=== PATIENT | female | born 1980 | race African-American/Black ===

== ENCOUNTER 2018-02-09 17:07 | Emergency (ER) | payer OTHER ==
[2018-02-09 17:11] VITALS: BP 133/75
--- NOTE | 2018-02-09 17:16 | ED ---
Throat Pain/Nasal Congestion - HPI Summary HPI Summary: 38-year-old female presents with foreign body in left ea today. States got ear bud stuck in her ear. She has not attempted to remove it. No other complaints. She states she has decreased hearing due to the ear bud. No sinus congestion. No fevers. - History of Current Complaint Chief Complaint: EDEarPain Time Seen by Provider: 02/09/18 17:13 - Allergies/Home Medications Allergies/Adverse Reactions: Allergies Allergy/AdvReac Type Severity Reaction Status Date / Time MS Penicillins [Penicillins] Allergy Intermediate Hives Verified 06/01/13 15:53 PMH/Surg Hx/FS Hx/Imm Hx Endocrine/Hematology History: Denies: Hx Anticoagulant Therapy Respiratory History: Reports: Hx Asthma - DX'D 5 MOS AGO - Surgical History Surgery Procedure, Year, and Place: tubal ligation. Infectious Disease History: No Infectious Disease History: Denies: Traveled Outside the [place] in Last 30 Days - Family History Known Family History: Positive: Hypertension - Social History Alcohol Use: Rare Substance Use Type: Reports: None Hx Tobacco Use: Yes Smoking Status (MU): Never Smoked Tobacco Review of Systems Negative: Fever Positive: Ear Ache - left ear foreign body Negative: Chest Pain Negative: Shortness Of Breath All Other Systems Reviewed And Are Negative: Yes Physical Exam Triage Information Reviewed: Yes Vital Signs On Initial Exam: Initial Vitals Temp Pulse Resp BP Pulse Ox 98 F 80 16 133/75 99 02/09/18 17:10 02/09/18 17:10 02/09/18 17:10 02/09/18 17:10 02/09/18 17:10 Vital Signs Reviewed: Yes Appearance: Positive: Well-Appearing Skin: Positive: Warm, Dry Head/Face: Positive: Normal Head/Face Inspection Eyes: Positive: Normal, EOMI, FABRIZIO, Conjunctiva Clear ENT: Positive: Pharynx normal, TMs normal - after removal, Other - ear bud in left ear Respiratory/Lung Sounds: Positive: Clear to Auscultation, Breath Sounds Present Cardiovascular: Positive: Normal, RRR Musculoskeletal: Positive: Normal Neurological: Positive: Normal Psychiatric: Positive: Normal Procedures - Procedure Summary Procedure Summary: removed left ear bud left ear with tweezers, normal TM afterwards Diagnostics - Vital Signs Vital Signs Temp Pulse Resp BP Pulse Ox 02/09/18 17:10 98 F 80 16 133/75 99 - Laboratory Lab Statement: Any lab studies that have been ordered have been reviewed, and results considered in the medical decision making process. EENT Course/Dx - Course Course Of Treatment: 38-year-old female presents with foreign body in left ea today. States got ear bud stuck in her ear. She has not attempted to remove it. No other complaints. She states she has decreased hearing due to the ear bud. No sinus congestion. No fevers. On exam has ear bud in left ear. removed with tweezers. Patient understands and agrees with plan. - Differential Diagnoses Differential Diagnoses: Foreign Body, Otitis Externa, Otitis Media - Diagnoses Provider Diagnoses: Foreign body in left ear Discharge - Sign-Out/Discharge Documenting (check all that apply): Patient Departure - Discharge Plan Condition: Good Disposition: HOME Patient Education Materials: Ear Foreign Body (ED) Referrals: No Primary Care Phys,NOPCP [Primary Care Provider] - Additional Instructions: Return to ED if develop any new or worsening symptoms - Billing Disposition and Condition Condition: GOOD Disposition: Home
== END 2018-02-09 17:20 | disposition home or self-care (01) ==
LOC: ED 17:07
DX: T16.2XXA Foreign body in left ear, initial encounter (principal); X58.XXXA Exposure to other specified factors, initial encounter; Y93.9 Activity, unspecified; Y92.9 Unspecified place or not applicable; Z88.0 Allergy status to penicillin; Z82.49 Family history of ischemic heart disease and other diseases of the circulatory system
CPT/HCPCS: 69200; 99282

== ENCOUNTER 2018-10-12 21:53 | Emergency (ER) | payer OTHER ==
[2018-10-12 23:37] LABS: Influenza A Molecular NEGATIVE (Negative); Influenza B Molecular NEGATIVE (Negative)
[2018-10-13] MEDS ORDERED: Azithromycin TAB* 250 MG PO ONE (01:07)
[2018-10-13] MEDS ORDERED: Benzonatate CAP* 100 MG PO ONE (01:07)
--- NOTE | 2018-10-13 01:10 | ED ---
Respiratory - HPI Summary HPI Summary: Patient complains of nasal congestion, facial pressure, sore throat with cough, persistent cough, plugged ears 2 weeks. Denies fever, CHAPMAN, neck stiffness, N/V/ D, abdominal pain, change in urine, change in BM. Medical history is none. - History of Current Complaint Chief Complaint: EDGeneral Stated Complaint: COUGH,STUFFY NOSE PER PT Time Seen by Provider: 10/13/18 00:29 Hx Obtained From: Patient Onset/Duration: Gradual Onset, Lasting Days Timing: Constant Initial Severity: Moderate Current Severity: Moderate Pain Intensity: 5 Character: Cough (Productive) Sputum Amount: Moderate Sputum Color: White, Yellow Aggravating Factor(s): Nothing Alleviating Factor(s): Nothing Associated Signs and Symptoms: Nasal Congestion - Allergy/Home Medications Allergies/Adverse Reactions: Allergies Allergy/AdvReac Type Severity Reaction Status Date / Time Penicillins Allergy Hives Verified 10/12/18 21:58 PMH/Surg Hx/FS Hx/Imm Hx Endocrine/Hematology History: Denies: Hx Anticoagulant Therapy Cardiovascular History: Denies: Hx Pacemaker/ICD Respiratory History: Reports: Hx Asthma - DX'D 5 MOS AGO History: Denies: Hx Dialysis Sensory History: Denies: Hx Eye Prosthesis Opthamlomology History: Denies: Hx Legally Blind EENT History: Denies: Hx Deafness Neurological History: Denies: Hx Dementia Psychiatric History: Denies: Hx Autism - Surgical History Surgery Procedure, Year, and Place: tubal ligation. Infectious Disease History: No Infectious Disease History: Denies: Traveled Outside the [place] in Last 30 Days - Family History Known Family History: Positive: Hypertension - Social History Alcohol Use: Rare Substance Use Type: Reports: None Hx Tobacco Use: Yes Smoking Status (MU): Never Smoked Tobacco Review of Systems Constitutional: Negative Eyes: Negative Positive: Nasal Discharge Cardiovascular: Negative Positive: Cough Gastrointestinal: Negative Genitourinary: Negative Musculoskeletal: Negative Skin: Negative Neurological: Negative Psychological: Normal All Other Systems Reviewed And Are Negative: Yes Physical Exam Triage Information Reviewed: Yes Vital Signs On Initial Exam: Initial Vitals Temp Pulse Resp BP Pulse Ox 98.1 F 93 16 169/100 100 10/12/18 21:55 10/12/18 21:55 10/12/18 21:55 10/12/18 21:55 10/12/18 21:55 Vital Signs Reviewed: Yes Appearance: Positive: Well-Appearing Skin: Positive: Warm Head/Face: Positive: Normal Head/Face Inspection Eyes: Positive: Normal ENT: Positive: Normal ENT inspection Neck: Positive: Supple Respiratory/Lung Sounds: Positive: Clear to Auscultation Cardiovascular: Positive: Normal Abdomen Description: Positive: Nontender Musculoskeletal: Positive: Normal Neurological: Positive: Normal Psychiatric: Positive: Normal AVPU Assessment: Alert - [place] Coma Scale Best Eye Response: 4 - Spontaneous Best Motor Response: 6 - Obeys Commands Best Verbal Response: 5 - Oriented Coma Scale Total: 15 Diagnostics - Vital Signs Vital Signs Temp Pulse Resp BP Pulse Ox 10/12/18 23:57 98.1 F 88 16 155/89 96 10/12/18 21:55 98.1 F 93 16 169/100 100 - Laboratory Lab Results: Lab Results 10/12/18 10/13/18 Range/Units 23:25 00:54 Influenza A (Rapid) Negative (Negative) Influenza B (Rapid) Negative (Negative) Group A Strep Rapid Negative (Negative) Lab Statement: Any lab studies that have been ordered have been reviewed, and results considered in the medical decision making process. Disposition - Course Course Of Treatment: Patient complains of nasal congestion, facial pressure, sore throat with cough, persistent cough, plugged ears 2 weeks. Denies fever, CHAPMAN, neck stiffness, N/V/D, abdominal pain, change in urine, change in BM. Medical history is none. Physical exam unremarkable. Vital signs within normal limits. Flu negative. Diagnosis sinusitis. Rx for azithromycin and Tessalon Perles. - Diagnoses Provider Diagnoses: Sinusitis Discharge - Sign-Out/Discharge Documenting (check all that apply): Patient Departure Patient Received Moderate/Deep Sedation with Procedure: No - Discharge Plan Condition: Stable Disposition: HOME Prescriptions: Azithromycin 250 mg PO DAILY 4 Days #4 tablet Benzonatate CAP* [Tessalon 100 MG CAP*] 200 mg PO TID 6 Days #40 cap Patient Education Materials: Sinusitis (ED) Referrals: No Primary Care Phys,NOPCP [Primary Care Provider] - Additional Instructions: Take antibiotics as directed. Tessalon Perles for cough. Tylenol or ibuprofen for headaches and facial pressure. Open window a small amount to allow moisture or use vaporizer. Follow-up with primary care. Return to the ED for any new or worsening symptoms. - Billing Disposition and Condition Condition: STABLE Disposition: Home
[2018-10-13 01:29] VITALS: BP 151/87
== END 2018-10-13 01:28 | disposition home or self-care (01) ==
LOC: ED 21:53
DX: J01.90 Acute sinusitis, unspecified (principal); J45.909 Unspecified asthma, uncomplicated; Z88.0 Allergy status to penicillin
CPT/HCPCS: 71046; 87651; 99283; A9270-GY

== ENCOUNTER 2018-12-30 05:52 | Day surgery (SDC) | payer OTHER ==
[~2018-12-30 05:52] MED LIST: Buffered Lidocaine 1% SYRIN* 1 ML/SYRINGE INTRADERM ONE
[2018-12-30] MEDS ORDERED: Famotidine IV* 10 MG/ML 2 ML (20 mg) IV ONE (06:00)
[2018-12-30] MEDS ORDERED: Lactated Ringers 1000 ML Bag* 1,000 ML IV SCH (06:00)
[2018-12-30] MEDS ORDERED: Famotidine IV* 10 MG/ML 2 ML (20 mg) ONE (06:30)
[2018-12-30] MEDS ORDERED: Buffered Lidocaine 1% SYRIN* 1 ML/SYRINGE INTRADERM ONE (06:32)
[2018-12-30] MEDS ORDERED: fentaNYL* 50 MCG/ML 2 ML VIAL (100 MCG VIAL) ONE (07:29)
[2018-12-30] MEDS ORDERED: Midazolam* 1 MG/ML 5 ML VIAL (5 MG) ONE (07:29)
[2018-12-30 07:41] LABS: ABS Basophils 0.1 10^3/ul (0-0.2); ABS Eosinophils 0.4 10^3/ul (0-0.6); ABS Monocytes 0.7 10^3/ul (0-0.8); ABS Neutrophils 4.1 10^3/ul (1.5-7.7); Eosinophil % 6.1 %; Hematocrit 32 % (35-47); Hemoglobin 10.1 g/dL (12.0-16.0); Lymphocyte % 16.8 %; Mean Corpuscular HGB Conc 32 g/dL (31-36); Mean Corpuscular Hemoglobin 22 pg (27-31); Mean Corpuscular Volume 68 fL (80-97); Mean Platelet Volume 8.8 fL (7.4-10.4); Nucleated Red Blood Cells % 0.2; Platelet Count 284 10^3/uL (150-450); Red Blood Count 4.71 10^6 /uL (3.70-4.87); Red Cell Distribution Width 28 % (10-15); White Blood Count 6.2 10^3/uL (3.5-10.8)
[2018-12-30] MEDS ORDERED: Ketorolac INJ* 30 MG/ML 1 ML VIAL ONE (07:49)
[2018-12-30] MEDS ORDERED: DiMENhydriNATE IV* 50 MG/ML VIAL ONE (07:49)
[2018-12-30] MEDS ORDERED: Lidocaine 2% PF * 5 ML VIAL ONE (07:49)
[2018-12-30] MEDS ORDERED: Propofol* 10 MG/ML 20 ML BTL ONE ×2 (07:49→08:29)
[2018-12-30] MEDS ORDERED: Ondansetron INJ* 2 MG/ML VIAL ONE (07:49)
[2018-12-30] MEDS ORDERED: Dexamethasone IV* 4 MG/ML 1 ML (4 MG) ONE (07:49)
[2018-12-30] MEDS ORDERED: HYDROmorphone INJ1* 1 MG/ML SYRINGE IV PRN (07:57)
[2018-12-30] MEDS ORDERED: Naloxone* 0.4 MG/ML 1 ML VIAL IV PRN (07:57)
[2018-12-30] MEDS ORDERED: Acetaminophen TAB* 325 MG PO PRN (07:57)
[2018-12-30] MEDS ORDERED: DiMENhydriNATE IV* 50 MG/ML VIAL IV PUSH PRN (07:57)
[2018-12-30] MEDS ORDERED: oxyCODONE TAB* 5 MG TAB PO PRN (07:57)
[2018-12-30 09:43] VITALS: BP 148/101
--- NOTE | 2019-01-05 10:57 | OP ---
OPERATIVE REPORT: DATE OF OPERATION: 12/30/18 DATE OF : 76 SURGEON: Boo Daly MD [employer]TERTAIN[employer] CENTRE MANAGER: None. ANESTHESIA: General anesthetic with laryngeal mask airway. PRE-OP DIAGNOSIS: Intrauterine fibroid and abnormal uterine bleeding. POST-OP DIAGNOSIS: Intrauterine fibroid and abnormal uterine bleeding. OPERATIVE PROCEDURE: Hysteroscopic myomectomy with MyoSure device. ESTIMATED BLOOD LOSS: Less than 10 cc. SPECIMENS SENT TO PATHOLOGY: Morcellated myoma along with endometrial curettings. FLUIDS: She received 1 L of IV crystalloid fluid. DRAINS: 200 cc of clear urine and the MyoSure fluids were even at about 1800 cc. FINDINGS: Hysteroscopically, the patient was noted to have a posterior fundal intracavitary myoma wh ich is about 3 to 4 cm in diameter with a proliferative endometrium. The uterus sounded to 12 cm in anteverted position and there were no complications. DESCRIPTION OF PROCEDURE: The patient was taken to the operating room where she was identified. She was placed on the operating table where a general anesthetic was obtained without difficulty. She w as then placed in a dorsal lithotomy position, prepped and draped in a normal sterile fashion. Atten tion was then brought on to the patient's perineum. The bladder was catheterized with a straight cat heter and drained of clear urine. At this point, a weighted speculum was inserted into the patient's vagina. The cervix was identified and grasped with a single-tooth tenaculum. I proceeded to sound the uterus and it sounded to 12 cm in an anteverted position after which Hegar dilators were used to dilate the cervix so that I can introduce the MyoSure hysteroscope device. A survey of the hysterosc opy revealed a posterior fundal intracavitary myoma at about 3 to 4 cm in diameter and surrounded by a proliferative endometrium. At this point, I proceeded with a myomectomy by using a MyoSure device, shaving the uterus from its exterior surface centrally and I was able to remove the entire myoma in pieces which were sent to Pathology. After the myoma was removed, I proceeded to perform a sharp cur ettage to assure complete denudation of the endometrial cavity. After the curettage, a look with the hysteroscope revealed complete denudation of the endometrial cavity and no more lesions noted. At t his point, I proceeded to remove all the instruments from the patient's vagina. Sponge, lap, and ins trument counts were correct x2. The patient was then transferred to recovery room area in stable con dition. [id number]/CPS #: [id number]
== END 2018-12-30 10:15 | disposition home or self-care (01) ==
LOC: OR 05:52
PROVIDERS: ATTEND Obstetrics & Gynecology
DX: D25.0 Submucous leiomyoma of uterus (principal); N93.8 Other specified abnormal uterine and vaginal bleeding; D50.0 Iron deficiency anemia secondary to blood loss (chronic); Z87.891 Personal history of nicotine dependence; N92.1 Excessive and frequent menstruation with irregular cycle
CPT/HCPCS: 36415; 84702; 85025; 85060; 86850; 86900; 86901; 88305; J1100; J1240; J1885; J2250; J2405; J2704; J3010

== ENCOUNTER 2019-02-26 21:13 | Emergency (ER) | payer OTHER ==
--- NOTE | 2019-02-26 22:47 | ED ---
Throat Pain/Nasal Congestion - HPI Summary HPI Summary: 39-year-old female presents with 3 day history of left upper dental pain. Patient states that she has known severe dental decay and has been told that she needs to have several of her teeth extracted. She currently does not have a dentist appointment. Has been taking ibuprofen 800 mg 3-4 times a day with minimal relief. Denies fever, chills, facial swelling, trismus, or drainage. - History of Current Complaint Chief Complaint: EDDentalPain Time Seen by Provider: 02/26/19 22:42 Hx Obtained From: Patient - Allergies/Home Medications Allergies/Adverse Reactions: Allergies Allergy/AdvReac Type Severity Reaction Status Date / Time Penicillins Allergy Intermediate Hives Verified 02/26/19 21:23 PMH/Surg Hx/FS Hx/Imm Hx Respiratory History: Reports: Hx Asthma - DX'D 5 MOS AGO Psychiatric History: Reports: Hx Anxiety - Cancer History Hx Chemotherapy: No - Surgical History Surgery Procedure, Year, and Place: tubal ligation. Hx Anesthesia Reactions: No Infectious Disease History: No Infectious Disease History: Denies: Traveled Outside the [place] in Last 30 Days - Family History Known Family History: Positive: Hypertension - Social History Occupation: Employed Part-time Lives: Alone Alcohol Use: Occasionally Substance Use Type: Reports: None Hx Tobacco Use: Yes Smoking Status (MU): Never Smoked Tobacco Review of Systems Negative: Fever, Chills Positive: Other - See HPI Cardiovascular: Negative Respiratory: Negative Gastrointestinal: Negative Genitourinary: Negative Musculoskeletal: Negative Skin: Negative Neurological: Negative All Other Systems Reviewed And Are Negative: Yes Physical Exam - Summary Physical Exam Summary: GENERAL APPEARANCE: Well developed, well nourished, alert and cooperative, and appears to be in no acute distress. HEAD: Atraumatic. Normocephalic. No facial swelling noted.MOUTH/ THROAT: Pharynx normal No tonsilar inflammation, swelling, exudate, or lesions. Uvula midline. Teeth in general poor condition with multiple teeth in various degrees of decay. Significant decay noted to the left upper molars with mild gingival erythema. No induration, fluctuance, or drainage note. No trismus. NECK: Neck supple, non-tender without lymphadenopathy. CARDIAC: Normal S1 and S2. No S3, S4 or murmurs. Rhythm is regular. There is no peripheral edema, cyanosis or pallor. Extremities are warm and well perfused. Capillary refill is less than 2 seconds. Peripheral pulses intact. LUNGS: Clear to auscultation without rales, rhonchi, wheezing or diminished breath sounds. ABDOMEN: Positive bowel sounds. Soft, nondistended, nontender. No guarding or rebound. No masses or hepatosplenomegally. MUSKULOSKELETAL: ROM intact to all extremities. No joint erythema or tenderness. Normal muscular development. Normal gait. SKIN: Skin normal color, texture and turgor with no lesions or eruptions. Triage Information Reviewed: Yes Vital Signs On Initial Exam: Initial Vitals Temp Pulse Resp BP Pulse Ox 98.3 F 74 16 187/112 98 02/26/19 21:20 02/26/19 21:20 02/26/19 21:20 02/26/19 21:20 02/26/19 21:20 Vital Signs Reviewed: Yes Diagnostics - Vital Signs Vital Signs Temp Pulse Resp BP Pulse Ox 02/26/19 21:53 97.7 F 67 16 169/86 100 02/26/19 21:20 98.3 F 74 16 187/112 98 - Laboratory Lab Statement: Any lab studies that have been ordered have been reviewed, and results considered in the medical decision making process. EENT Course/Dx - Course Course Of Treatment: 39-year-old female presents with 3 day history of left upper dental pain. Patient states that she has known severe dental decay and has been told that she needs to have several of her teeth extracted. She currently does not have a dentist appointment. Has been taking ibuprofen 800 mg 3-4 times a day with minimal relief. Denies fever, chills, facial swelling, trismus, or drainage. Afebrile. Hypertensive otherwise vital signs stable. Patient's teeth in general poor condition with multiple teeth in various degrees of decay. Significant decay noted to the left upper molars with mild gingival erythema. No induration, fluctuance, or drainage note. No trismus. No facial swelling. No cervical lymphadenpathy. Remainder of exam unremarkable. Will start her on clindamycin 300 mg TID x 10 days to treat for a possible dental infection. First dose was given in the ED. She is to continue to use OTC analgesics as needed for pain and establish with a dentist at the next available appointment. Anticipatory guidance and warning symptoms reviewed. Verbalizes understanding and agrees with POC. - Differential Diagnoses Differential Diagnoses: Dental Abscess, Dental Caries, Fractured Tooth, Odontogenic Pain, Periodontic Disease - Diagnoses Provider Diagnoses: Pain, dental Discharge - Sign-Out/Discharge Documenting (check all that apply): Patient Departure Patient Received Moderate/Deep Sedation with Procedure: No - Discharge Plan Condition: Stable Disposition: HOME Prescriptions: Clindamycin Cap(NF) [Clindamycin Cap 300 mg Cap(NF)] 300 mg PO TID #30 cap Patient Education Materials: Toothache (ED) Referrals: Silvestre Cooper MD [Primary Care Provider] - Additional Instructions: Start clindamycin 300 mg three times a day for 10 days. Take acetaminophen (Tylenol) or ibuprofen (Advil, Motrin) according to directions as needed for pain. Be sure to rinse your mouth out with a warm salt water solution after every time you eat to remove any debris. Make an appointment with your dentist at next available appointment. Seek immediate medical attention in the emergency room if you develop fever greater than 100.5 F, you are unable to open of close your mouth, are unable to swallow, have difficulty breathing, or any worsening of symptoms. - Billing Disposition and Condition Condition: STABLE Disposition: Home
[2019-02-26] MEDS ORDERED: Clindamycin CAP* 150 MG PO ONE (23:12)
[2019-02-26 23:21] VITALS: BP 160/106
== END 2019-02-26 23:24 | disposition home or self-care (01) ==
LOC: ED 21:13
DX: K04.7 Periapical abscess without sinus (principal); K02.9 Dental caries, unspecified; K05.6 Periodontal disease, unspecified; Z88.0 Allergy status to penicillin; J45.909 Unspecified asthma, uncomplicated; F41.9 Anxiety disorder, unspecified
CPT/HCPCS: 99282; A9270-GY